=== PATIENT | female | born 1960 | race Caucasian/White ===

== ENCOUNTER → 2017-08-18 | Outpatient (CLI) | payer OTHER ==
[~2017-08-18] VITALS: Ht 162.6 cm; Wt 78.5 kg
[~2017-08-18] MED LIST: ALDACTONE25 MG PO; BACTRIM,SEPT1 TABLET PO; HYDROCHLOROTHIA25 MG PO; METOPROLOL SUCC50 MG PO; TURMERIC 450-51 EACH PO; VICODIN,LORT1 TABLET PO; VITAMIN D35000 UNIT PO
== END | disposition home or self-care (01) ==
LOC: AMB 09:30
DX: Z12.11 Encounter for screening for malignant neoplasm of colon (principal); D12.3 Benign neoplasm of transverse colon; K38.8 Other specified diseases of appendix; Z80.0 Family history of malignant neoplasm of digestive organs
CPT/HCPCS: 88305; 93005; J2250